=== PATIENT | female | born 1960 | race African-American/Black ===

== ENCOUNTER 2022-05-14 16:30 | Outpatient (RCR) | payer MEDICAID, SELFPAY | END 2023-03-19 23:59 | disposition home or self-care (01) | PROVIDERS: Visit Provider Nurse Practitioner Family | DX: I89.0 Lymphedema, not elsewhere classified (principal); Z51.89 Encounter for other specified aftercare | CPT/HCPCS: 97140; 97165; 97530; 97535 ==